=== PATIENT | female | born 1940 | race Caucasian/White ===

== ENCOUNTER 2019-11-07 10:58 | Inpatient (IN) | payer MEDICARE, BC ==
[~2019-11-07] VITALS: Ht 162.6 cm; Wt 68.3 kg
[~2019-11-07 10:58] MED LIST: ASPI325 PO; ATOR40TA PO; AZELASTINE137 MCG/0.; Armour Thyroid15 MG; Armour Thyroid15 MG PO; BASAGLAR K100 UNIT/1 SC; BENZ100A; CHOL10002 PO; ESCI10 PO; FAMO20 PO; GABA300 PO; INVOKANA100 MG PO; Inderal40 MG PO; METO50ER PO; Multiple Vitam1 EAC1 PO; Novolog Fl100 UNIT/1; PSEU120ER; RXPROM25 PO; UBID100 PO; VITAMIN B122500 MCG PO
[2019-11-07] MEDS ORDERED: BASAGLAR K100 UNIT/2 SC (11:59)
[2019-11-07] MEDS ORDERED: ROSADAN45 G1 TOP (12:01)
[2019-11-07] MEDS ORDERED: MYRBETRIQ25 MG PO (12:02)
[2019-11-07] MEDS ORDERED: ELIQUIS5 M2 PO (12:02)
[2019-11-07] MEDS ORDERED: LETR2.5 PO (12:03)
--- NOTE | 2019-11-07 18:03 | NUR ---
SHIFT SUMMARY ASSUMED CARE OF PT AT APPROXIMATELY 1500 POST SUCCESSFUL CARDIOVERSION. PT ALERT AND ORIENTED. VS STABLE. HR NSR 70-80'S. PT DENIES ANY CP/PRESSURE OR DIZZINESS. PT EDUCATED ON NEW MEDICATION SOTALOL AND NEED FOR EKG AFTER EACH ADMINISTRATION. SPOKE WITH DR. MCKEON ABOUT EKG AFTER FIRST DOSE OF SOTALOL. ORDERS TO CHANGE PROPANOLOL ORDER. WILL CONTINUE TO MONITOR AND REPORT TO ONCOMING RN. CALL LIGHT IN REACH.
--- NOTE | 2019-11-07 19:28 | NUR ---
RECEIVED REPORT FROM ANTHONY PAVON. ASSUMED CARE OF PT. IN NO ACUTE DISTRESS AT THIS TIME. DENIES CHEST PAIN, PRESSURE, SOB. DENIES ANY NEEDS AT THIS TIME. CALL LIGHT AND POSSESSIONS IN REACH, DAUGHTER AT THE BEDSIDE. WILL CONTINUE TO MONITOR.
[2019-11-08 04:00] LABS: BASOPHILS ABSOLUTE AUTO 0.06 K/mm3 (0.00-0.23); BASOPHILS PERCENT AUTO 1 % (0-2); EOSINOPHILS ABSOLUTE AUTO 0.28 K/mm3 (0.00-0.68); EOSINOPHILS PERCENT AUTO 3 % (0-6); Hematocrit 44.2 % (33.0-51.0); Hemoglobin 14.2 g/dL (11.5-16.0); IMMATURE GRAN ABSOLUTE AUTO 0.03 K/mm3 (0.00-0.10); IMMATURE GRAN PERCENT AUTO 0 % (0-1); LYMPHOCYTES ABSOLUTE AUTO 1.22 K/mm3 (0.84-5.20); LYMPHOCYTES PERCENT AUTO 14 % (21-46); MONOCYTES ABSOLUTE AUTO 1.07 K/mm3 (0.16-1.47); MONOCYTES PERCENT AUTO 12 % (4-13); Mean Corpuscular HGB 30.9 pg (26.0-34.0); Mean Corpuscular HGB Conc 32.1 g/dL (31.5-36.5); Mean Corpuscular Volume 96 fL (80-100); NEUTROPHILS ABSOLUTE AUTO 6.02 K/mm3 (1.96-9.15); NEUTROPHILS PERCENT AUTO 69 % (41-73); Platelet Count 189 K/mm3 (150-400); RDW Coefficient Variation 13.3 % (11.7-14.2); RDW Standard Deviation 47.5 fL (35.1-46.3); White Blood Cell Count 8.68 K/mm3 (4.00-11.30)
[2019-11-08 04:14] LABS: Bun/Creatinine Ratio 31.7 (12.0-20.0); Calcium, Blood 8.8 mg/dL (8.5-10.1); Creatinine, Blood 1.01 mg/dL (0.40-1.00); Magnesium, Blood 2.1 mg/dL (1.6-2.4); Potassium, Blood 4.2 mmol/L (3.5-5.5)
--- NOTE | 2019-11-08 06:02 | NUR ---
SHIFT SUMMARY: PT RESTING IN BED COMFORTABLY, IN NO ACUTE DISTRESS. NO C/O CHEST PAIN, PRESSURE, OR SOB. MAINTAINED NSR THROUGHOUT THE NIGHT. WAS MONITORED EVERY 1-2 HOURS WITH NEEDS MET, DENIES ANY NEEDS AT THIS TIME. CALL LIGHT AND POSSESSIONS IN REACH, DAUGHTER REMAINS AT BEDSIDE.
--- NOTE | 2019-11-08 18:30 | NUR ---
SHIFT SUMMARY PT A&Ox4; CALM AND COOPERATIVE WITH CARE. PT RESTING IN BED FOR MAJORITY OF SHIFT. UP IN ROOM SBA. PT DENIES PAIN; CHEST PAIN/PRESSURE/ LIGHTHEADEDNESS/DIZZINESS/ SOB AND NASUEA T/O SHIFT. PT TALKING SOTALOL; EKG COMPLETED THIS AM AND PM 30-60 MINUTES POST ADMINISTRATION OF MEDCICATIONS. PT SPOW >90% ON RA, CPAP AT NOC. PER TELE NSR. VSS. NO OTHER ACUTE CHANGES NOTED DURING SHIFT. WILL CONTINUE TO MONITOR UNITL REPORT GIVEN TO ONCOMING RN.
--- NOTE | 2019-11-08 19:58 | NUR ---
RECEIVED REPORT FROM ANTHONY CANNON. ASSUMED CARE OF PT. IN NO ACUTE DISTRESS. DENIES ANY CHEST PAIN, PRESSURE OR SOB. DENIES ANY OTHER NEEDS AT THIS TIME. CALL LIGHT AND POSSESSIONS IN REACH, DAUGHTER AT THE BEDSIDE. WILL CONTINUE TO MONITOR.
[2019-11-09 04:45] LABS: Anion Gap 5 mmol/L (6-16); Blood Urea Nitrogen 26 mg/dL (8-24); Bun/Creatinine Ratio 32.5 (12.0-20.0); CHOL/HDL RATIO 3.2; CO2, Blood 26 mmol/L (21-32); Calcium, Blood 9.1 mg/dL (8.5-10.1); Chloride, Blood 110 mmol/L (98-108); Cholesterol 142 mg/dL (50-200); Glomerular Filtration Rate >60 (60-); Glucose, Blood 112 mg/dL (70-99); HDL Cholesterol 45 mg/dL (>39); LDL/HDL RATIO 1.6; Low Density Lipoprotein Chol 72 mg/dL (0-110); Potassium, Blood 4.1 mmol/L (3.5-5.5); Sodium, Blood 141 mmol/L (136-145); Triglycerides 124 mg/dL (30-160); Very Low Density Lipoprot Chol 24 mg/dL (6-32)
--- NOTE | 2019-11-09 06:46 | NUR ---
PT RESTING IN BED COMFORTABLY AT THIS TIME, IN NO ACUTE DISTRESS. WAS MONITORED EVERY 1-2 HOURS WITH NEEDS MET. DENIES ANY NEEDS AT THIS TIME. CALL LIGHT AND POSSESSIONS IN REACH, DAUGHTER REMAINS AT BEDSIDE.
[2019-11-09 07:23] LABS: Alanine Aminotransfer (ALT/SGP 28 U/L (12-78); Aspartate Aminotrans (AST/SGOT 19 U/L (12-37)
--- NOTE | 2019-11-09 17:17 | NUR ---
SHIFT SUMMARY PT A&Ox4; CALM AND COOPERATIVE WITH CARE. PT IND IN ROOM; SBA WITH FAMILY WALKING THROUGH HALLS T/O SHIFT. PT RESTING IN BED, UP ON SIDE OF BED FOR MEALS. PT REPORTING HIP PAIN AFTER WALKING, DENIES NEED FOR MEDICATION AT THIS TIME, REQUESTING TYLENOL AT BEDTIME; NOTIFIED DR MARTINEZ, NEW ORDERS ENTERED. PT REPORTS "MILD" SOB WITH EXERTION; SPO2 >90% ON RA T/O SHIFT. PT DENIES NAUSEA T/O SHIFT. EKG COMPELTED AFTER SOTALOL ADMINISTRATION; NOTIFIED DR MCKEON; CONTINUE TO MONITOR. VSS. NO OTHER ACUTE CHANGES NOTED. WILL CONTINUE TO MONITOR UNTIL REPORT GIVEN TO ONCOMING RN.
--- NOTE | 2019-11-09 19:50 | NUR ---
RECEIVED REPORT FROM ANTHONY CANNON. ASSUMED CARE OF PT. IN NO ACUTE DISTRESS AT THIS TIME. RESTING IN BED COMFORTABLY. DENIES ANY NEEDS AT THIS TIME. DAUGHTER AT THE BEDSIDE. CALL LIGHT AND POSSESSIONS IN REACH, WILL CONTINUE TO MONITOR.
[2019-11-10 04:47] LABS: Anion Gap 6 mmol/L (6-16); Blood Urea Nitrogen 28 mg/dL (8-24); Bun/Creatinine Ratio 37.7 (12.0-20.0); CO2, Blood 23 mmol/L (21-32); Chloride, Blood 110 mmol/L (98-108); Creatinine, Blood 0.74 mg/dL (0.40-1.00); Glomerular Filtration Rate >60 (60-); Glucose, Blood 128 mg/dL (70-99); Sodium, Blood 139 mmol/L (136-145)
--- NOTE | 2019-11-10 06:39 | NUR ---
PT REMAINS ASLEEP AT THIS TIME, IN NO ACUTE DISTRESS, WAS MONITORED EVERY 1-2 HOURS WITH NEEDS MET. DENIES ANY NEEDS AT THIS TIME. O2 SATS AND BPS STABLE, SLEPT THROUGHOUT THE NIGHT. DAUGHTER REMAINS AT THE BEDSIDE. CALL LIGHT AND POSSESSIONS IN REACH. WILL CONTINUE TO MONITOR PT UNTIL REPORT GIVEN TO ONCOMING RN.
[2019-11-10] MEDS ORDERED: BASAGLAR K100 UNIT/1 SC (09:25)
[2019-11-10] MEDS ORDERED: Inderal40 MG PO (09:27)
[2019-11-10] MEDS ORDERED: SENN187 PO (09:29)
[2019-11-10] MEDS ORDERED: Sotalol80 MG PO (09:33)
--- NOTE | 2019-11-10 12:10 | NUR ---
DISCHARGE SUMMARY DISCHARGED TO HOME WITH FAMILY VIA PRIVATE VEHICLE. PT ESCORTED TO CAR BY W/C. MAGNOLIAS, DENIES SOB/CP AT THIS TIME, D/S INSTRUCTIONS HAVE BEEN EXPLAINED, PT STATES UNDERSTANDING, IV REMOVED WNL, HOME MEDICATIONS/PERSONAL BELONGINGS RETURNED. PT ENC TO F/U [facility] FOR ANY PROBLEMS OR CONCERNS.
== END 2019-11-10 11:06 | disposition home or self-care (01) | DRG 309 ==
LOC: MHTC 10:58 → PCU 12:26 → MHTC 15:28 → PCU 11-10 11:06
PROVIDERS: Internal Medicine; ADMIT Internal Medicine Cardiovascular Disease
PROC: B24BZZ4 Ultrasonography of Heart with Aorta, Transesophageal (ICD-10-PCS; principal; 2019-11-07)
PROC: 5A2204Z Restoration of Cardiac Rhythm, Single (ICD-10-PCS; 2019-11-07)
DX: I48.0 Paroxysmal atrial fibrillation (principal); E87.1 Hypo-osmolality and hyponatremia; N17.9 Acute kidney failure, unspecified; N18.3 Chronic kidney disease, stage 3 (moderate); E11.22 Type 2 diabetes mellitus with diabetic chronic kidney disease; G47.33 Obstructive sleep apnea (adult) (pediatric); Z90.49 Acquired absence of other specified parts of digestive tract; K21.9 Gastro-esophageal reflux disease without esophagitis; Z92.21 Personal history of antineoplastic chemotherapy; Z92.3 Personal history of irradiation; E03.9 Hypothyroidism, unspecified; Z87.891 Personal history of nicotine dependence; E66.3 Overweight; Z68.25 Body mass index [BMI] 25.0-25.9, adult; I34.0 Nonrheumatic mitral (valve) insufficiency; G25.81 Restless legs syndrome; Z79.84 Long term (current) use of oral hypoglycemic drugs
CPT/HCPCS: 36415; 80048; 80061; 82947; 83735; 84443; 84450; 84460; 85025; 92960; 93005; 93010; 93312; 93325; 94762; 99152; J2704; J7030

== ENCOUNTER → 2019-11-22 | Outpatient (CLI) | payer MEDICARE, BC ==
[~2019-11-22] MED LIST changes: +BASAGLAR K100 UNIT/2 SC; +ELIQUIS5 M2 PO; +LETR2.5 PO; +MYRBETRIQ25 MG PO; +ROSADAN45 G1 TOP; +SENN187 PO; +Sotalol80 MG PO
[2019-11-22 15:59] LABS: Adenovirus F 40/41 Not Detected (NOT DETECT); Astrovirus Not Detected (NOT DETECT); Campylobacter Sp Not Detected (NOT DETECT); Cryptosporidium Not Detected (NOT DETECT); Cyclospora Cayetanensis Not Detected (NOT DETECT); E. Coli O157 Not Detected (NOT DETECT); Entamoeba Histolytica Not Detected (NOT DETECT); Enteroaggregative E. coli-EAEC Not Detected (NOT DETECT); Enteropathogenic E. coli-EPEC Not Detected (NOT DETECT); Enterotoxigenic E. coli-ETEC Not Detected (NOT DETECT); Giardia Lamblia Not Detected (NOT DETECT); Norovirus GI/GII Not Detected (NOT DETECT); Plesiomonas Shigelloides Not Detected (NOT DETECT); Rotavirus A Not Detected (NOT DETECT); Salmonella Sp Not Detected (NOT DETECT); Sapovirus Not Detected (NOT DETECT); Shiga Toxin-prod E. coli-STEC Not Detected (NOT DETECT); Shigella/Enteroin E. coli-EIEC Not Detected (NOT DETECT); Vibrio Cholerae Not Detected (NOT DETECT); Vibrio Sp Not Detected (NOT DETECT); Yersinia Enterocolitica Not Detected (NOT DETECT)
[2019-11-24 12:06] LABS: FATS, NEUTRAL Increased (.); FATS, TOTAL Increased (.)
== END | disposition home or self-care (01) ==
LOC: OLS 11:42 → LAB SHORT 11:42 → LAB FUT 11-19 14:40 → EDSTATUS 11-19 14:40
PROVIDERS: Internal Medicine Gastroenterology
DX: R19.7 Diarrhea, unspecified (principal)
CPT/HCPCS: 0097U

== ENCOUNTER → 2019-12-02 | Outpatient (CLI) | payer MEDICARE, BC | END | disposition home or self-care (01) | LOC: LAB SHORT 14:14 → LAB 14:14 → LAB FUT 11-28 14:05 | PROVIDERS: Internal Medicine Gastroenterology | DX: R19.7 Diarrhea, unspecified (principal) | CPT/HCPCS: 82710 ==

== ENCOUNTER → 2019-12-02 | Outpatient (CLI) | payer MEDICARE, BC ==
[2019-12-04 05:10] LABS: IMMUNOGLOBULIN A, QN, SERUM 340 mg/dL (64-422)
[2019-12-04 16:10] LABS: ENDOMYSIAL ANTIBODY IGA Negative (Negative)
== END | disposition home or self-care (01) ==
LOC: LAB SHORT 13:15 → OLS 13:15 → LAB FUT 11-28 14:45
PROVIDERS: Internal Medicine Gastroenterology
DX: R19.7 Diarrhea, unspecified (principal)
CPT/HCPCS: 36415; 82784; 83516; 86255

== ENCOUNTER → 2020-10-22 | Outpatient (CLI) | payer MEDICARE, BC ==
[~2020-10-22] MED LIST changes: +AZELASTINE137 MCG/01; +DRON400T; +LISI5 PO; +LOSA25 PO; +Metrocream45 GM TP; +SOTO80 PO
== END | disposition home or self-care (01) ==
LOC: LAB 06:25 → LAB SHORT 06:25
PROVIDERS: Family Medicine
DX: R80.9 Proteinuria, unspecified (principal)
CPT/HCPCS: 81050; 84156

== ENCOUNTER 2021-03-07 11:05 | Day surgery (SDC) | payer MEDICARE, BC ==
[~2021-03-07] VITALS: Ht 160 cm; Wt 65.0 kg
[~2021-03-07 11:05] MED LIST changes: -AZELASTINE137 MCG/01; -DRON400T; -LISI5 PO; -LOSA25 PO; -Metrocream45 GM TP; -SOTO80 PO
[2021-03-07] MEDS ORDERED: AZELASTINE137 MCG/01 (12:08)
[2021-03-07] MEDS ORDERED: LISI5 PO (12:09)
[2021-03-07] MEDS ORDERED: Metrocream45 GM TP (12:09)
[2021-03-07] MEDS ORDERED: DRON400T (12:49)
--- NOTE | 2021-03-07 13:22 | NUR ---
PT AWAKE AND TALKING WITH STAFF. DAUGHTER CALLED, DISCHARGE GONE OVER WITH PT. SALINE LOCK REMOVED WITH CATHETER INTACT. PT VERBALIZES UNDERSTANDING OF INSTRUCTIONS. PT TO PRIVATE VEHICLE PER W/C.
== END 2021-03-07 22:59 | disposition home or self-care (01) ==
LOC: MHTC 11:05
DX: I48.91 Unspecified atrial fibrillation (principal)
CPT/HCPCS: 82947; 83735; 84443; 92960; 93005; 93010; J2250; J2704; J7040

== ENCOUNTER 2021-03-22 12:40 | Inpatient (IN) | payer MEDICARE, BC ==
[~2021-03-22] VITALS: Ht 160 cm; Wt 66.8 kg
[~2021-03-22 12:40] MED LIST changes: +AZELASTINE137 MCG/01; +DRON400T; +LISI5 PO; +Metrocream45 GM TP
[2021-03-22] MEDS ORDERED: LOSA25 PO (13:21)
--- NOTE | 2021-03-22 13:57 | NUR ---
DR TOMLINSON IN ROOM.
--- NOTE | 2021-03-22 14:16 | NUR ---
ONE 200 J SYNCHRONISED SHOCK DELIVERED. PT TOLERATED WELL.
--- NOTE | 2021-03-22 14:56 | NUR ---
PT SITTING UP; PT DENIES CP. CALL LIGHT IN REACH AND PT DRINKING WATER.
--- NOTE | 2021-03-22 17:28 | NUR ---
ADMISSION PT [facility] FOLLOWING CARDIOVERSION. PT WAS FEELING FATIGUED AND WAS IN AFIB WITH RVR. PT WAS SHOCKED ONCE WITH 200 JOULES AND CONVERTED TO SR. PT WAS ADMITTED AND ARRIVED TO PCU AT APPROXIMATELY 1535. PT HAS BEEN STARTED ON SOTALOL UPON ADMITTANCE AND EKG IS TO BE DONE 30 MINUTES FOLLOWING THE ADMIN OF THE MEDICATION, PROVIDER TO BE NOTIFIED IF QTc IS MORE THAN 500ms. THE FIRST EKG WAS COMPLETED AT APPROXIMATELY 1715 WITH QT INTERVAL MEASURING AT 0.46. PT DENIES SOB, CP AND DISCOMFORT
[2021-03-23 03:49] LABS: BASOPHILS ABSOLUTE AUTO 0.09 K/mm3 (0.00-0.23); BASOPHILS PERCENT AUTO 1 % (0-2); EOSINOPHILS ABSOLUTE AUTO 0.37 K/mm3 (0.00-0.68); EOSINOPHILS PERCENT AUTO 6 % (0-6); Hematocrit 40.4 % (33.0-51.0); Hemoglobin 13.4 g/dL (11.5-16.0); IMMATURE GRAN ABSOLUTE AUTO 0.04 K/mm3 (0.00-0.10); IMMATURE GRAN PERCENT AUTO 1 % (0-1); LYMPHOCYTES ABSOLUTE AUTO 1.16 K/mm3 (0.84-5.20); LYMPHOCYTES PERCENT AUTO 18 % (21-46); MONOCYTES PERCENT AUTO 14 % (4-13); Mean Corpuscular HGB 31.8 pg (26.0-34.0); Mean Corpuscular HGB Conc 33.2 g/dL (31.5-36.5); Mean Corpuscular Volume 96 fL (80-100); Mean Platelet Volume 9.8 fL (9.1-12.4); NEUTROPHILS ABSOLUTE AUTO 3.79 K/mm3 (1.96-9.15); NEUTROPHILS PERCENT AUTO 60 % (41-73); Platelet Count 275 K/mm3 (150-400); RDW Coefficient Variation 13.9 % (11.7-14.2); RDW Standard Deviation 49.2 fL (35.1-46.3); Red Blood Cell Count 4.22 M/mm3 (3.80-5.20); White Blood Cell Count 6.35 K/mm3 (4.00-11.30)
[2021-03-23 04:10] LABS: Anion Gap 4 mmol/L (6-16); Blood Urea Nitrogen 18 mg/dL (8-24); Bun/Creatinine Ratio 25.4 (12.0-20.0); CO2, Blood 25 mmol/L (21-32); Calcium, Blood 8.2 mg/dL (8.5-10.1); Chloride, Blood 108 mmol/L (98-108); Creatinine, Blood 0.71 mg/dL (0.40-1.00); Glomerular Filtration Rate >60 (60-); Glucose, Blood 115 mg/dL (70-99); Magnesium, Blood 2.1 mg/dL (1.6-2.4); Potassium, Blood 3.9 mmol/L (3.5-5.5); Sodium, Blood 137 mmol/L (136-145)
--- NOTE | 2021-03-23 18:38 | NUR ---
SHIFT SUMMARY NO ACUTE EVENTS THIS SHIFT, VSS. PATIENT ALERT AND ORIENTED, ON ROOM AIR AND TOLERATING WELL. PATIENT DENIED CHEST PAIN/PRESSURE THROUGH SHIFT, REMAINED IN NSR. ABLE TO AMBULATE IN ROOM INDEPENDENTLY, REPOSITIONED SELF THROUGHOUT SHIFT. EKG COMPLETED AND PLACED ON CHART 30 MINUTES POST SOTALOL ADMINISTRATION, QTc<500ms. PATIENT COMPLAINED OF CHRONIC NECK PAIN, BUT DECLINED ANY MEDICATIONS OR HEAT/COLD.
[2021-03-24 04:08] LABS: Anion Gap 4 mmol/L (6-16); Blood Urea Nitrogen 21 mg/dL (8-24); Bun/Creatinine Ratio 24.6 (12.0-20.0); CO2, Blood 27 mmol/L (21-32); Calcium, Blood 8.6 mg/dL (8.5-10.1); Chloride, Blood 107 mmol/L (98-108); Creatinine, Blood 0.85 mg/dL (0.40-1.00); Glomerular Filtration Rate >60 (60-); Glucose, Blood 101 mg/dL (70-99); Magnesium, Blood 2.2 mg/dL (1.6-2.4); Potassium, Blood 4.2 mmol/L (3.5-5.5); Sodium, Blood 138 mmol/L (136-145)
--- NOTE | 2021-03-24 05:53 | NUR ---
SHIFT SUMMARY NO ACUTE CHANGES THIS SHIFT. PT A&OX4. SP02>92% ON RA. PT WORE CPAP WHILE SLEEPING. TELEMETRY READS NSR, HR 60'S. EKG DONE THIS AM 30 MIN AFTER GIVING SOTOLOL. PT C/O OF CHRONIC BACK PAIN, MEDICATED W/ TYLENOL X2 THIS SHIFT. PT SLEPT T/O NIGHT. UP TO VOID INDEPENDENTLY IN ROOM. CALL LIGHT IN REACH. WILL GIVE REPORT TO ONCOMING NURSE.
--- NOTE | 2021-03-24 18:53 | NUR ---
SHIFT NOTE PT AMBULATING IN ROOM, NADN. SR NOTED ON MONITOR. REPEAT EKG COMPLETED 30 POST SOTOLOL ADMIN, DR MCKEON WILL BE IN TO SEE PT LATER TONIGHT. THERE ARE NO ACUTE CHANGES OTHERWISE DURING THIS SHIFT
[2021-03-24] MEDS ORDERED: SOTO80 PO (20:22)
--- NOTE | 2021-03-25 01:01 | NUR ---
SHIFT SUMMARY 1744: PT IS SITTING UP IN BED, EAGER TO DISCHARGE. SATING ABOVE 92% ON ROOM AIR. PIV IS REMOVED. DENIES CHEST PAIN OR SOB. MONITORED CONTINUOUSLY VIA TELE. 2014: DR. MCKEON IS IN THE ROOM, DISCUSSING DISCHARGE PLANS FOR TREATMENT WITH PT. 2049: PT WAS DISCHARGED TO CARE OF HER DAUGHTER, AND LEFT HOSPITAL IN STABLE CONDITION IN PERSONAL VEHICLE WITH HER PERSONAL BELONGINGS. PRIOR TO DISCHARGE, PT RECEIVED ALL 2100 MEDICATIONS.
== END 2021-03-24 20:30 | disposition home or self-care (01) | DRG 310 ==
LOC: MHTC 12:40 → PCU 15:28 → MHTC 16:20 → PCU 03-24 20:30
PROVIDERS: ADMIT Internal Medicine Cardiovascular Disease
PROC: B24BZZ4 Ultrasonography of Heart with Aorta, Transesophageal (ICD-10-PCS; principal; 2021-03-22)
PROC: 5A2204Z Restoration of Cardiac Rhythm, Single (ICD-10-PCS; 2021-03-22)
DX: I48.0 Paroxysmal atrial fibrillation (principal); I10 Essential (primary) hypertension; E11.9 Type 2 diabetes mellitus without complications; E78.5 Hyperlipidemia, unspecified; G25.0 Essential tremor; E03.9 Hypothyroidism, unspecified; G47.33 Obstructive sleep apnea (adult) (pediatric); I34.0 Nonrheumatic mitral (valve) insufficiency; R94.31 Abnormal electrocardiogram [ECG] [EKG]; G25.81 Restless legs syndrome; E66.3 Overweight; K21.9 Gastro-esophageal reflux disease without esophagitis; Z68.25 Body mass index [BMI] 25.0-25.9, adult; Z87.891 Personal history of nicotine dependence; Z87.81 Personal history of (healed) traumatic fracture; Z85.3 Personal history of malignant neoplasm of breast; Z90.13 Acquired absence of bilateral breasts and nipples; Z99.89 Dependence on other enabling machines and devices; Z90.49 Acquired absence of other specified parts of digestive tract; Z90.89 Acquired absence of other organs; Z98.890 Other specified postprocedural states; Z88.6 Allergy status to analgesic agent; Z88.8 Allergy status to other drugs, medicaments and biological substances; Z79.4 Long term (current) use of insulin; Z79.01 Long term (current) use of anticoagulants; Z79.899 Other long term (current) drug therapy
CPT/HCPCS: 36415; 80048; 82947; 83735; 84443; 85025; 85610; 92960; 93005; 93010; 94762; A9270; J2704; J7030

== ENCOUNTER → 2021-05-26 | Outpatient (CLI) | payer MEDICARE, BC ==
[~2021-05-26] MED LIST changes: +LOSA25 PO; +SOTO80 PO
[2021-05-26 17:14] LABS: Protein, Urine Random 10.7 mg/dL (0.0-11.9); Protein/Creat Ratio, Ur Random 0.3
== END | disposition home or self-care (01) ==
LOC: LAB 10:58 → LAB SHORT 10:58
PROVIDERS: Internal Medicine
DX: R80.9 Proteinuria, unspecified (principal)
CPT/HCPCS: 82570; 84156

== ENCOUNTER 2021-08-26 13:00 | Day surgery (SDC) | payer MEDICARE, BC ==
[~2021-08-26] VITALS: Wt 64.5 kg
--- NOTE | 2021-08-26 14:12 | NUR ---
PT HERE FOR CARDIOVERSION, ANESTHESIA HERE. DR MCKEON TEXTED.
--- NOTE | 2021-08-26 14:18 | NUR ---
DR MCKEON ARRIVED
--- NOTE | 2021-08-26 14:20 | NUR ---
SEDATION STARTED PER ANESTHESIA
--- NOTE | 2021-08-26 14:21 | NUR ---
[address] MCKEON
--- NOTE | 2021-08-26 14:41 | NUR ---
ANESTHESIA GONE, PATIENT ALERT AND TALKING AT THIS TIME.
--- NOTE | 2021-08-26 14:54 | NUR ---
DAUGHTER HERE WITH PATIENT. EKG READS NSR.
--- NOTE | 2021-08-26 15:08 | NUR ---
DISCHARGE GONE OVER WITH DAUGHTER AND WITH PT, BOTH VERBALIZE UNDERSTANDING OF INSTRUCTIONS. PT AWAKE, ALERT AND AMBULATORY WITH QUAD CANE TO BATHROOM WITH DAUGHTER. PT TO PRIVATE VEHICLE PER W/C WITH DAUGHTER.
== END 2021-08-26 23:21 | disposition home or self-care (01) ==
LOC: MHTC 13:00 → ORSCSDS 13:00 → MHTC 13:01 → ORD 14:00 → ORSCSDS 14:00 → MHTC 23:21
DX: I48.92 Unspecified atrial flutter (principal); I48.0 Paroxysmal atrial fibrillation; E78.5 Hyperlipidemia, unspecified; I10 Essential (primary) hypertension; G47.33 Obstructive sleep apnea (adult) (pediatric); I34.0 Nonrheumatic mitral (valve) insufficiency; E11.9 Type 2 diabetes mellitus without complications; E03.9 Hypothyroidism, unspecified; Z85.3 Personal history of malignant neoplasm of breast; G25.81 Restless legs syndrome; Z87.891 Personal history of nicotine dependence; Z79.01 Long term (current) use of anticoagulants; Z79.4 Long term (current) use of insulin
CPT/HCPCS: 82947; 92960; 93005; 93010; J2704; J7030